=== PATIENT | male | born 1930 | race Caucasian/White ===

== ENCOUNTER → 2016-02-11 | Outpatient (CLI) | payer MEDICARE, OTHER ==
[2016-02-11 18:17] LABS: ABSOLUTE LYMPHOCYTES (AUTO) 2.1 10^3/uL (0.5-4.7); ABSOLUTE MONOCYTES (AUTO) 0.8 10^3/uL (0.1-1.4); BASOPHILS % (AUTO) 0.6 % (0-2); EOSINOPHILS % (AUTO) 0.6 % (0-6); HEMATOCRIT 38.6 % (37.9-51.0); HEMOGLOBIN 13.5 g/dL (13.5-17.0); HGB HCT DIFFERENCE 1.9; LYMPHOCYTES % (AUTO) 25.7 % (13-45); MEAN CORPUSCULAR HEMOGLOBIN 29.3 pg (27.0-33.4); MEAN CORPUSCULAR HGB CONC 34.9 g/dL (32.0-36.0); MEAN CORPUSCULAR VOLUME 84 fl (80-97); MONOCYTES % (AUTO) 10.5 % (3-13); RED BLOOD COUNT 4.59 10^6/uL (4.35-5.55); RED CELL DISTRIBUTION WIDTH 15.2 % (11.5-14.0); SEGMENTED NEUTROPHILS % (AUTO) 62.6 % (42-78)
[2016-02-11 18:36] LABS: ALANINE AMINOTRANSFERASE 40 U/L (21-72); ALBUMIN 3.8 g/dL (3.5-5.0); ALKALINE PHOSPHATASE 130 U/L (38-126); ANION GAP 14 (5-19); ASPARTATE AMINO TRANSFERASE 25 U/L (17-59); BILIRUBIN,TOTAL 0.7 mg/dL (0.2-1.3); BLOOD UREA NITROGEN 12 mg/dL (7-20); CALCIUM 9.2 mg/dL (8.4-10.2); CARBON DIOXIDE 23 mmol/L (22-30); CHLORIDE 100 mmol/L (98-107); CREATININE RESULT 0.91 mg/dL (0.52-1.25); GLUCOSE 93 mg/dL (75-110); POTASSIUM 3.8 mmol/L (3.6-5.0); SODIUM 137.4 mmol/L (137-145); TOTAL PROTEIN 6.7 g/dL (6.3-8.2)
== END ==
LOC: OD 17:16
PROVIDERS: ATTEND Nurse Practitioner
DX: I25.9 Chronic ischemic heart disease, unspecified (principal); I48.92 Unspecified atrial flutter; D64.9 Anemia, unspecified; I10 Essential (primary) hypertension; R06.02 Shortness of breath
CPT/HCPCS: 36415; 80053; 83880; 85025

== ENCOUNTER → 2016-02-11 | Outpatient (CLI) | payer MEDICARE, OTHER | LOC: RAD 16:39 | PROVIDERS: ATTEND Nurse Practitioner | DX: I25.9 Chronic ischemic heart disease, unspecified (principal); I48.92 Unspecified atrial flutter; D64.9 Anemia, unspecified; I10 Essential (primary) hypertension; R06.02 Shortness of breath | CPT/HCPCS: 71020 ==

== ENCOUNTER 2016-02-28 08:37 | Inpatient (IN) | payer MEDICARE, OTHER ==
[2016-02-28 09:18] LABS: ABSOLUTE LYMPHOCYTES (AUTO) 1.7 10^3/uL (0.5-4.7); ABSOLUTE MONOCYTES (AUTO) 0.6 10^3/uL (0.1-1.4); ABSOLUTE NEUT (AUTO) 4.3 10^3/uL (1.7-8.2); BASOPHILS % (AUTO) 0.5 % (0-2); EOSINOPHILS % (AUTO) 0.3 % (0-6); HEMATOCRIT 39.1 % (37.9-51.0); HGB HCT DIFFERENCE -0.1; LYMPHOCYTES % (AUTO) 25.8 % (13-45); MEAN CORPUSCULAR HGB CONC 33.2 g/dL (32.0-36.0); MEAN CORPUSCULAR VOLUME 87 fl (80-97); MONOCYTES % (AUTO) 8.5 % (3-13); RED BLOOD COUNT 4.48 10^6/uL (4.35-5.55); RED CELL DISTRIBUTION WIDTH 16.2 % (11.5-14.0); SEGMENTED NEUTROPHILS % (AUTO) 64.9 % (42-78); WHITE BLOOD COUNT 6.6 10^3/uL (4.0-10.5)
[2016-02-28 09:36] LABS: ALANINE AMINOTRANSFERASE 24 U/L (21-72); ALKALINE PHOSPHATASE 104 U/L (38-126); ANION GAP 12 (5-19); ASPARTATE AMINO TRANSFERASE 26 U/L (17-59); BILIRUBIN,TOTAL 0.8 mg/dL (0.2-1.3); BLOOD UREA NITROGEN 19 mg/dL (7-20); CALCIUM 9.3 mg/dL (8.4-10.2); CARBON DIOXIDE 26 mmol/L (22-30); CHLORIDE 101 mmol/L (98-107); CREATINE KINASE 41 U/L (55-170); CREATININE RESULT 1.03 mg/dL (0.52-1.25); GLUCOSE 108 mg/dL (75-110); POTASSIUM 3.8 mmol/L (3.6-5.0); SODIUM 139.1 mmol/L (137-145); TOTAL PROTEIN 6.7 g/dL (6.3-8.2)
[2016-02-28 09:51] LABS: APPEARANCE,URINE CLEAR; BILIRUBIN,URINE NEGATIVE (NEGATIVE); GLUCOSE, URINE NEGATIVE (NEGATIVE); KETONES,URINE NEGATIVE (NEGATIVE); LEUKOCYTE ESTERASE,URINE NEGATIVE (NEGATIVE); NITRITE,URINE NEGATIVE (NEGATIVE); PROTEIN,URINE NEGATIVE (NEGATIVE); URINE SPECIFIC GRAVITY 1.005; UROBILINOGEN,URINE NEGATIVE mg/dL (<2.0)
[2016-02-28 09:52] LABS: CREATINE KINASE MB 0.58 ng/mL (<4.55)
[2016-02-28 09:53] LABS: TROPONIN I 0.034 ng/mL
--- NOTE | 2016-02-28 10:18 | ER Document Report ---
ED Respiratory Problem - General Mode of Arrival: Medic Information source: Patient TRAVEL OUTSIDE OF THE [place] IN LAST 30 DAYS: No - HPI Patient complains to provider of: Short of breath Onset: Other - 2-3 weeks ago Associated symptoms: Other - see above <MANUEL CULVER - Last Filed: 02/28/16 10:21> <PASQUALE ALCANTAR - Last Filed: 02/28/16 12:47> - General Chief Complaint: Shortness Of Breath Stated Complaint: DIFFICULTY BREATHING Notes: 85 year old male with history of coronary artery disease, atrial fibrillation, hypertension, and hyperlipidemia presents to the ED complaining of shortness of breath that started 2-3 weeks ago. Patient explains that he was unsure if he was able to walk back into his home this morning after getting the paper secondary to his shortness of breath. Patient states that he has to actively think about breathing in order to catch his breath. The past 2 nights the patient has been having difficulty sleeping. Patient states that his shortness of breath has been getting progressively worse over the past 2-3 weeks. Patient is additionally complaining of gaining 10.5 lbs in the past 6 days. Patient was seen in the ED in May with cholecystitis and cholelithiasis but was transferred to [place] since he was already scheduled to receive an abdominal aorta aneurysm stent. Patient explains that he recently had an echocardiogram performed by Dr. Green and was started on Coreg 3 days ago. Patient is additionally on Coumadin, Lasix, and spironolactone. Patient's primary care provider is Dr. Medrano (MANUEL CULVER) - Related Data Allergies/Adverse Reactions: No Known Allergies Allergy (Verified 05/19/15 02:35) Past Medical History - General Information source: Patient - Social History Smoking Status: Never Smoker Family History: Reviewed & Not Pertinent - Past Medical History Cardiac Medical History: Reports: Hx Atrial Fibrillation, Hx Coronary Artery Disease, Hx Hypercholesterolemia, Hx Hypertension Past Surgical History: Reports: Hx Cardiac Surgery - AAA stent, Hx Cholecystectomy, Hx Coronary Artery Bypass Graft - Four-vessel bypass 2011 at [facility] in [place], [place], Hx Open Heart Surgery - Mitral valve repair during his 4 vessel bypass - Immunizations Hx Diphtheria, Pertussis, Tetanus Vaccination: Yes <MANUEL CULVER - Last Filed: 02/28/16 10:21> Review of Systems - Review of Systems Constitutional: See HPI, Weight gain - 10.5 pounds in the past 6 days. denies: Fever EENT: No symptoms reported Cardiovascular: No symptoms reported Respiratory: See HPI, Short of breath Gastrointestinal: No symptoms reported Genitourinary: No symptoms reported Male Genitourinary: No symptoms reported Musculoskeletal: No symptoms reported Skin: No symptoms reported Hematologic/Lymphatic: No symptoms reported Neurological/Psychological: See HPI, Other - difficulty sleeping -: Yes All other systems reviewed and negative <MANUEL CULVER - Last Filed: 02/28/16 10:21> Physical Exam - General General appearance: Alert In distress: None - HEENT Head: Normocephalic, Atraumatic Eyes: Normal Extraocular movements intact: Yes Pupils: PERRL - Respiratory Respiratory status: No respiratory distress Breath sounds: Other - crackles at the bilateral base - Cardiovascular Rhythm: Irregularly irregular Heart sounds: Normal auscultation - Abdominal Inspection: Normal Distension: No distension Tenderness: Nontender - Back Back: Normal - Extremities General upper extremity: Normal inspection, Normal ROM General lower extremity: Normal inspection, Normal ROM. No: Edema - Neurological Neuro grossly intact: Yes - Psychological Associated symptoms: Normal affect, Normal mood - Skin Skin Temperature: Warm Skin Moisture: Dry Skin Color: Normal <MANUEL CULVER - Last Filed: 02/28/16 10:21> <PASQUALE ALCANTAR - Last Filed: 02/28/16 12:47> - Vital signs Vitals: Pulse Ox 95 02/28/16 08:45 (MANUEL CULVER) (PASQUALE ALCANTAR) Course - Laboratory Result Diagrams: 02/28/16 09:05 02/28/16 09:05 <MANUEL CULVER - Last Filed: 02/28/16 10:21> - Laboratory Result Diagrams: 02/28/16 09:05 02/28/16 09:05 - Diagnostic Test Radiology reviewed: Reports reviewed - Congestive heart failure - EKG Interpretation by Oh EKG shows normal: [place], QRS Complexes, ST-T Waves. abnormal: Intervals - Prolonged QT interval Rate: Normal - 93 Rhythm: A.Fib, A.Flutter - Consults Dr. Varela Time consulted: 12:45 Consulted provider: will come to ER <PASQUALE ALCANTAR - Last Filed: 02/28/16 12:47> - Vital Signs Vital signs: Temp Pulse Resp BP Pulse Ox 97.8 F 24 H 132/101 H 98 02/28/16 10:36 02/28/16 12:07 02/28/16 12:07 02/28/16 12:07 (MANUEL CULVER) (PASQUALE ALCANTAR) - Laboratory Laboratory results interpreted by me: 02/28/16 02/28/16 02/28/16 09:05 09:05 09:05 Hgb 13.0 L RDW 16.2 H PT Creatine Kinase 41 L NT-Pro-B Natriuret Pep 5940 H Urine Blood 02/28/16 02/28/16 09:05 09:30 Hgb RDW PT 32.2 H Creatine Kinase NT-Pro-B Natriuret Pep Urine Blood SMALL H (MANUEL CULVER) (PASQUALE ALCANTAR) Discharge <MANUEL CULVER - Last Filed: 02/28/16 10:21> - Discharge Admitting Provider: Hospitalist <PASQUALE ALCANTAR - Last Filed: 02/28/16 12:47> - Discharge Clinical Impression: CHF (congestive heart failure) Qualifiers: Congestive heart failure type: unspecified congestive heart failure type Congestive heart failure chronicity: acute Qualified Code(s): I50.9 - Heart failure, unspecified Condition: Stable Disposition: ADMITTED INPATIENT Scribe Attestation: 02/28/16 12:44 I personally performed the services described in the documentation, reviewed and edited the documentation which was dictated to the scribe in my presence, and it accurately records my words and actions. (PASQUALE ALCANTAR) Scribe Documentation - Scribe Written by Scribe:: Tammi Rios, 02/28/2016 10:28 acting as scribe for :: Mitchell <MANUEL CULVER - Last Filed: 02/28/16 10:21>
[2016-02-28 10:22] LABS: PROTHROMBIN TIME 32.2 SEC (11.4-15.4)
--- NOTE | 2016-02-28 11:05 | EKG REPORT ---
SEVERITY:- ABNORMAL ECG - ATRIAL FLUTTER/FIBRILLATION, A-RATE 234 , THIS RHYTHM IS NEW COMPARED TO LAST EKG 05/19/15. PROLONGED QT INTERVAL : Confirmed by: Neville Nguyễn MD 28-Feb-2016 11:04:56
[2016-02-28] MEDS ORDERED: FUROSEMIDE INJ/PF 100 MG/10 ML SDV IV ONE (11:51)
[2016-02-28] MEDS ORDERED: ACETAMINOPHEN 325 MG TABLET PO PRN (13:33)
[2016-02-28] MEDS ORDERED: ONDANSETRON HCL INJ/PF 4 MG/2 ML SDV IV PRN (13:33)
[2016-02-28] MEDS ORDERED: ONDANSETRON 4 MG TAB.RAPDIS PO PRN (13:33)
[2016-02-28] MEDS ORDERED: NITROGLYCERIN 0.4 MG/TAB 25 TAB/BOTTLE SL PRN (13:41)
[2016-02-28] MEDS ORDERED: HYDRALAZINE HCL INJ/PF 20 MG/1 ML SDV IV PRN (14:10)
--- NOTE | 2016-02-28 14:10 | PDOC H&P ---
History of Present Illness Admission Date/PCP: 02/28/16 13:46 ZACHARIAH LANDRY Patient complains of: Shortness of breath and a 10 pound weight gain over the last week. 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 Patient reports that 3 days after being switched to Coreg he started gaining weight. The report he gained about 2 pounds a day until he is finally gained a total of 10 pounds. The patient also has had worsening shortness of breath along with orthopnea and PND. Patient denies having any chest pain associated with this. The patient does relate that his blood pressure has been fluctuating greatly and goes as high as 160/ 115 down to 110/70. This can occur within hours of each other. The patient does report having some mild lower extremity edema. He any change in his dietary habits. He has been taking his Lasix and Aldactone as prescribed. He denies any dysuria or abdominal pain. He does have some bloating and fluid retention. He presented to emergency because his breathing continued to worsen. He is found to be in congestive heart failure and was told by his front end drupal developer that his ejection fraction was 45% earlier this month. His blood pressure is very high and most likely has some diastolic component to his congestive heart failure also. Past Medical History Cardiac Medical History: Reports: Atrial Fibrillation, Coronary Artery Disease, Hyperlipidema, Hypertension Pulmonary Medical History: Reports: None Neurological Medical History: Reports: None Endocrine Medical History: Reports: Hypothyroidism Renal/ Medical History: Reports: None Malignancy Medical History: Reports: Other - Bladder cancer Musculoskeltal Medical History: Reports: None Skin Medical History: Reports: None Psychiatric Medical History: Reports: None Traumatic Medical History: Reports: Other - Right shoulder separation after being thrown from horse Hematology: Denies: Anemia, Sickle Cell Disease Infectious Medical History: Reports: None Past Surgical History Past Surgical History: Reports: Cholecystectomy, Coronary Artery Bypass Graft - Four-vessel bypass 03/10/2011 at [facility] in [place], [place], Other - Cardiac ablation for atrial fibrillation. Denies: Pacemaker Social History Information Source: Patient Lives with: Family Smoking Status: Never Smoker Frequency of Alcohol Use: Rare Hx Recreational Drug Use: No Drugs: None - Advance Directive Resuscitation Status: Full Code Family History Family History: Father at age 83 and had coronary artery disease. Mother at age 76 from lung cancer. Parental Family History Reviewed: Yes Children Family History Reviewed: No Sibling(s) Family History Reviewed.: No Medication/Allergy Home Medications: Aspirin [Aspirin 325 mg Tablet] 81 mg PO DAILY 09/27/12 Furosemide 40 mg PO DAILY 09/27/12 Multivitamin [Multi Vitamin Daily] 1 each PO DAILY 09/27/12 Nitroglycerin [Nitrostat 0.4 mg (1/150 Gr) Tabs 25/Bottle] 1 tab SL Q5MP PRN Warfarin Sodium [Coumadin 2.5 Mg Tablet] 2.5 mg PO DAILY 09/27/12 Cholecalciferol (Vitamin D3) [Vitamin D3 5000 unit Capsule] 5,000 unit PO ASDIR 10/18/12 Carvedilol 25 mg PO BID 02/28/16 Levothyroxine Sodium [Levo-T] 50 mcg PO QAM 02/28/16 Spironolactone 25 mg PO QAM 02/28/16 Allergies/Adverse Reactions: No Known Allergies Allergy (Verified 05/19/15 02:35) Review of Systems Constitutional: PRESENT: weight gain. ABSENT: chills, fever(s), headache(s) Eyes: ABSENT: visual disturbances Ears: ABSENT: hearing changes Cardiovascular: PRESENT: dyspnea on exertion, edema, orthropnea. ABSENT: chest pain, palpitations Respiratory: PRESENT: dyspnea. ABSENT: cough, hemoptysis, sputum Gastrointestinal: ABSENT: abdominal pain, constipation, diarrhea, hematemesis, hematochezia, nausea, vomiting Genitourinary: ABSENT: dysuria, hematuria Musculoskeletal: ABSENT: joint swelling Integumentary: ABSENT: rash, wounds Neurological: ABSENT: abnormal gait, abnormal speech, confusion, dizziness, focal weakness, syncope Psychiatric: ABSENT: anxiety, depression Endocrine: ABSENT: cold intolerance, heat intolerance, polydipsia, polyuria Hematologic/Lymphatic: ABSENT: easy bleeding, easy bruising Physical Exam Vital Signs: Temp Pulse Resp BP Pulse Ox 97.8 F 11 L 156/119 H 97 02/28/16 10:36 02/28/16 13:01 02/28/16 13:01 02/28/16 13:01 General appearance: PRESENT: no acute distress, well-developed, well-nourished Head exam: PRESENT: atraumatic, normocephalic Eye exam: PRESENT: conjunctiva pink, EOMI, PERRLA. ABSENT: scleral icterus Ear exam: PRESENT: normal external ear exam Mouth exam: PRESENT: moist, tongue midline Neck exam: ABSENT: carotid bruit, JVD, lymphadenopathy, thyromegaly Respiratory exam: PRESENT: rales - Bibasilar Cardiovascular exam: PRESENT: irregular rhythm. ABSENT: diastolic murmur, rubs , systolic murmur Vascular exam: PRESENT: normal capillary refill GI/Abdominal exam: PRESENT: normal bowel sounds, soft. ABSENT: distended, guarding, mass, organolmegaly, rebound, tenderness Extremities exam: PRESENT: pedal edema. ABSENT: calf tenderness, clubbing Neurological exam: PRESENT: alert, awake, oriented to person, oriented to place , oriented to time, oriented to situation, CN II-XII grossly intact. ABSENT: motor sensory deficit Psychiatric exam: PRESENT: appropriate affect Skin exam: PRESENT: dry, intact, warm. ABSENT: cyanosis, rash Results Impressions: Chest X-Ray 02/28/16 08:54 IMPRESSION: Congestive heart failure with interstitial pulmonary edema. Small left effusion. Assessment & Plan - Diagnosis (1) CHF (congestive heart failure) Qualifiers: Congestive heart failure type: unspecified congestive heart failure type Congestive heart failure chronicity: acute Qualified Code(s): I50.9 - Heart failure, unspecified Is this a current diagnosis for this admission?: YesPlan: The patient has elevated blood pressures which most likely is contributing to his congestive heart failure. The patient has a history of ejection fraction 45 % so he does have a component of systolic dysfunction and given the elevated blood pressures most likely also has diastolic dysfunction. The patient began having symptoms after his antihypertensives were switched from diltiazem to Coreg. I suspect that his blood pressure has gotten worse since making the change and that's what has caused his breathing to become worse. We will give IV Lasix and add on Norvasc to his therapy and will continue with the Coreg dose. We'll check serial cardiac enzymes to make certain this is not acute cardiac event but I suspect it is just blood pressure related. (2) Hypertension Is this a current diagnosis for this admission?: YesPlan: Patient's blood pressures fluctuate and he most likely has a component of autonomic dysfunction in addition to his hypertension. We'll continue with the Coreg and Aldactone. Will give IV Lasix and add on Norvasc. (3) Coronary artery disease Is this a current diagnosis for this admission?: YesPlan: Patient is chest pain-free. We'll check serial cardiac enzymes. Continue with aspirin 81 mg daily. (4) Atrial fibrillation Is this a current diagnosis for this admission?: YesPlan: Patient is rate controlled. We'll continue with the Coreg and Coumadin. (5) Bladder cancer Is this a current diagnosis for this admission?: YesPlan: Patient has a history of having bladder cancer 2 separate times removed with TURB (6) Hyperlipidemia Is this a current diagnosis for this admission?: Yes (7) Hypothyroidism Is this a current diagnosis for this admission?: YesPlan: Continue with Synthroid. (8) Abdominal aortic aneurysm Is this a current diagnosis for this admission?: YesPlan: Patient had an stent placed at [place]. - Time Time Spent: 50 to 70 Minutes - Inpatient Certification Medical Necessity: Need Close Monitoring Due to Risk of Patient Decompensation - Plan Summary Plan Summary: We'll make a full admission as I anticipate this will require greater than a 2 midnight hospital stay for diuresis.
[2016-02-28 16:00] LABS: CREATINE KINASE MB 0.41 ng/mL (<4.55); TROPONIN I 0.035 ng/mL
[2016-02-28] MEDS ORDERED: (PENDING PHARMACY ID) (Carvedilol [Carvedilol] 25 MG) PO SCH (18:00)
[2016-02-28 20:13] LABS: CREATINE KINASE MB 0.28 ng/mL (<4.55); TROPONIN I 0.033 ng/mL
[2016-02-28] MEDS: FUROSEMIDE INJ/PF 40 MG/4 ML SDV IV SCH (21:34)
[2016-02-28] MEDS: CARVEDILOL 12.5 MG TABLET PO SCH (21:35)
[2016-02-28] MEDS: FAMOTIDINE 20 MG TABLET PO SCH (21:36)
[2016-02-29 02:33] LABS: HEMATOCRIT 35.9 % (37.9-51.0); HEMOGLOBIN 11.9 g/dL (13.5-17.0); HGB HCT DIFFERENCE -0.2; MEAN CORPUSCULAR HGB CONC 33.2 g/dL (32.0-36.0); MEAN CORPUSCULAR VOLUME 87 fl (80-97); RED BLOOD COUNT 4.11 10^6/uL (4.35-5.55); RED CELL DISTRIBUTION WIDTH 15.9 % (11.5-14.0); WHITE BLOOD COUNT 6.9 10^3/uL (4.0-10.5)
[2016-02-29 02:41] LABS: PROTHROMBIN TIME 32.9 SEC (11.4-15.4)
[2016-02-29 02:51] LABS: ANION GAP 8 (5-19); BLOOD UREA NITROGEN 20 mg/dL (7-20); CALCIUM 8.6 mg/dL (8.4-10.2); CARBON DIOXIDE 30 mmol/L (22-30); CHLORIDE 102 mmol/L (98-107); CREATINE KINASE 29 U/L (55-170); CREATININE RESULT 1.13 mg/dL (0.52-1.25); GLUCOSE 86 mg/dL (75-110); POTASSIUM 3.6 mmol/L (3.6-5.0); SODIUM 140.3 mmol/L (137-145)
[2016-02-29 03:02] LABS: CREATINE KINASE MB 0.23 ng/mL (<4.55); TROPONIN I 0.039 ng/mL
[2016-02-29] MEDS: SPIRONOLACTONE 25 MG TABLET PO SCH (07:38)
[2016-02-29] MEDS: LEVOTHYROXINE SODIUM 0.05 MG TABLET PO SCH (07:38)
[2016-02-29] MEDS ORDERED: GUAIFENESIN/D-METHORPHAN (200-20 MG) SYRUP 10 ML PO PRN (08:32)
[2016-02-29] MEDS ORDERED: LACTULOSE SYRUP 20 GM/30 ML UDCUP PO PRN (08:33)
[2016-02-29] MEDS: FAMOTIDINE 20 MG TABLET PO SCH ×2 (09:31→21:30)
[2016-02-29] MEDS: AMLODIPINE BESYLATE 5 MG TABLET PO SCH (09:31)
[2016-02-29] MEDS: MULTIVITAMIN TABLET PO SCH (09:31)
[2016-02-29] MEDS: CARVEDILOL 12.5 MG TABLET PO SCH ×2 (09:32→21:31)
[2016-02-29] MEDS: FUROSEMIDE INJ/PF 40 MG/4 ML SDV IV SCH ×2 (09:32→21:30)
[2016-02-29] MEDS: WARFARIN SODIUM 2.5 MG TABLET PO SCH (09:41)
[2016-02-29] MEDS: ASPIRIN 81 MG TABLET, ENT COATED PO SCH (09:55)
[2016-02-29] MEDS ORDERED: ASPIRIN 325 MG TABLET PO SCH (10:00)
--- NOTE | 2016-02-29 10:05 | EKG REPORT ---
SEVERITY:- ABNORMAL ECG - A-FLUTTER W/ PREDOM 4:1 AV BLOCK, A-RATE 238 CONSIDER ANTEROSEPTAL INFARCT NONSPECIFIC T ABNORMALITIES, LATERAL LEADS : Confirmed by: Neville Nguyễn MD 29-Feb-2016 10:05:01
--- NOTE | 2016-02-29 11:53 | PDOC PROGRESS REPORT ---
Subjective Progress Note for:: 02/29/16 Subjective:: Patient reports improvement in his shortness of breath Physical Exam Vital Signs: Temp Pulse Resp BP Pulse Ox 97.9 F 69 20 125/85 99 02/29/16 07:47 02/29/16 07:47 02/29/16 07:47 02/29/16 07:47 02/29/16 07:47 Intake & Output 02/28/16 02/29/16 03/01/16 06:59 06:59 06:59 Intake Total 892 Balance 892 Weight 88.4 kg General appearance: PRESENT: no acute distress Eye exam: PRESENT: conjunctiva pink. ABSENT: scleral icterus Mouth exam: PRESENT: moist, tongue midline Neck exam: PRESENT: JVD Respiratory exam: PRESENT: rales - Right basilar rails. Cardiovascular exam: PRESENT: irregular rhythm. ABSENT: diastolic murmur, rubs , systolic murmur GI/Abdominal exam: PRESENT: normal bowel sounds, soft. ABSENT: distended, guarding, mass, organolmegaly, rebound, tenderness Extremities exam: PRESENT: +1 edema. ABSENT: calf tenderness, clubbing Neurological exam: PRESENT: alert, awake, oriented to person, oriented to place , oriented to time, oriented to situation Psychiatric exam: PRESENT: appropriate affect Skin exam: PRESENT: dry, intact, warm. ABSENT: cyanosis, rash Results Laboratory Results: 02/29/16 02:19 02/29/16 02:19 02/29/16 02/29/16 02:19 02:19 WBC 6.9 RBC 4.11 L Hgb 11.9 L Hct 35.9 L MCV 87 MCH 29.0 MCHC 33.2 RDW 15.9 H Plt Count 177 Sodium 140.3 Potassium 3.6 Chloride 102 Carbon Dioxide 30 Anion Gap 8 BUN 20 Creatinine 1.13 Est GFR ( Amer) > 60 Est GFR (Non-Af Amer) > 60 Glucose 86 Calcium 8.6 Magnesium 2.0 02/28/16 02/28/16 02/28/16 15:10 15:10 19:31 Creatine Kinase 32 L 32 L CK-MB (CK-2) 0.41 Troponin I 0.035 02/28/16 02/29/16 02/29/16 19:31 02:19 02:19 Creatine Kinase 29 L CK-MB (CK-2) 0.28 0.23 Troponin I 0.033 0.039 Impressions: Chest X-Ray 02/28/16 08:54 IMPRESSION: Congestive heart failure with interstitial pulmonary edema. Small left effusion. Assessment & Plan - Diagnosis (1) CHF (congestive heart failure) Qualifiers: Congestive heart failure type: unspecified congestive heart failure type Congestive heart failure chronicity: acute Qualified Code(s): I50.9 - Heart failure, unspecified Is this a current diagnosis for this admission?: YesPlan: The patient has elevated blood pressures which most likely is contributing to his congestive heart failure. The patient has a history of ejection fraction 45 % so he does have a component of systolic dysfunction and given the elevated blood pressures most likely also has diastolic dysfunction. The patient began having symptoms after his antihypertensives were switched from diltiazem to Coreg. I suspect that his blood pressure has gotten worse since making the change and that's what has caused his breathing to become worse. We will give IV Lasix and add on Norvasc to his therapy and will continue with the Coreg dose. We'll check serial cardiac enzymes to make certain this is not acute cardiac event but I suspect it is just blood pressure related. (2) Hypertension Is this a current diagnosis for this admission?: YesPlan: Patient's blood pressures fluctuate and he most likely has a component of autonomic dysfunction in addition to his hypertension. We'll continue with the Coreg and Aldactone. Will give IV Lasix and continue with Norvasc that was started yesterday. (3) Coronary artery disease Is this a current diagnosis for this admission?: YesPlan: Patient is chest pain-free. Cardiac enzymes were negative. Continue with aspirin 81 mg daily. (4) Atrial fibrillation Is this a current diagnosis for this admission?: YesPlan: Patient is rate controlled. We'll continue with the Coreg and Coumadin. (5) Bladder cancer Is this a current diagnosis for this admission?: YesPlan: Patient has a history of having bladder cancer 2 separate times removed with TURB (6) Hyperlipidemia Is this a current diagnosis for this admission?: Yes (7) Hypothyroidism Is this a current diagnosis for this admission?: YesPlan: Continue with Synthroid. (8) Abdominal aortic aneurysm Is this a current diagnosis for this admission?: YesPlan: Patient had an stent placed at [place]. - Time Time Spent with patient: 25-34 minutes - Inpatient Certification Medical Necessity: Need Close Monitoring Due to Risk of Patient Decompensation
[2016-03-01 05:55] LABS: PROTHROMBIN TIME 25.9 SEC (11.4-15.4)
[2016-03-01 06:07] LABS: ABSOLUTE BASOPHILS # (AUTO) 0.1 10^3/uL (0.0-0.2); ABSOLUTE EOSINOPHILS # (AUTO) 0.1 10^3/uL (0.0-0.6); ABSOLUTE LYMPHOCYTES (AUTO) 1.6 10^3/uL (0.5-4.7); ABSOLUTE MONOCYTES (AUTO) 0.7 10^3/uL (0.1-1.4); ABSOLUTE NEUT (AUTO) 4.5 10^3/uL (1.7-8.2); BASOPHILS % (AUTO) 1.4 % (0-2); EOSINOPHILS % (AUTO) 0.9 % (0-6); HEMATOCRIT 36.1 % (37.9-51.0); HEMOGLOBIN 12.3 g/dL (13.5-17.0); HGB HCT DIFFERENCE 0.8; LYMPHOCYTES % (AUTO) 23.3 % (13-45); MEAN CORPUSCULAR HEMOGLOBIN 29.2 pg (27.0-33.4); MEAN CORPUSCULAR HGB CONC 34.2 g/dL (32.0-36.0); MEAN CORPUSCULAR VOLUME 85 fl (80-97); MONOCYTES % (AUTO) 9.8 % (3-13); RED BLOOD COUNT 4.23 10^6/uL (4.35-5.55); SEGMENTED NEUTROPHILS % (AUTO) 64.6 % (42-78); WHITE BLOOD COUNT 6.9 10^3/uL (4.0-10.5)
[2016-03-01 06:14] LABS: ANION GAP 12 (5-19); BLOOD UREA NITROGEN 19 mg/dL (7-20); CALCIUM 8.6 mg/dL (8.4-10.2); CARBON DIOXIDE 26 mmol/L (22-30); CHLORIDE 101 mmol/L (98-107); CREATININE RESULT 1.07 mg/dL (0.52-1.25); GLUCOSE 92 mg/dL (75-110); POTASSIUM 3.5 mmol/L (3.6-5.0); SODIUM 138.9 mmol/L (137-145)
[2016-03-01] MEDS: FUROSEMIDE INJ/PF 40 MG/4 ML SDV IV SCH (10:08)
[2016-03-01] MEDS: LEVOTHYROXINE SODIUM 0.05 MG TABLET PO SCH (10:09)
[2016-03-01] MEDS: SPIRONOLACTONE 25 MG TABLET PO SCH (10:10)
[2016-03-01] MEDS: FAMOTIDINE 20 MG TABLET PO SCH (10:10)
[2016-03-01] MEDS: ASPIRIN 81 MG TABLET, ENT COATED PO SCH (10:10)
[2016-03-01] MEDS: AMLODIPINE BESYLATE 5 MG TABLET PO SCH (10:10)
[2016-03-01] MEDS: MULTIVITAMIN TABLET PO SCH (10:10)
[2016-03-01] MEDS: CARVEDILOL 12.5 MG TABLET PO SCH (10:11)
[2016-03-01] MEDS: WARFARIN SODIUM 2.5 MG TABLET PO SCH (10:14)
--- NOTE | 2016-03-01 12:43 | PDOC DISCHARGE SUMMARY ---
General - Admit/Disc Date/PCP Admission Date/Primary Care Provider: 02/28/16 13:33 ZACHARIAH LANDRY Discharge Date: 03/01/16 - Discharge Diagnosis (1) CHF (congestive heart failure) Is this a current diagnosis for this admission?: YesSummary: Most likely systolic and diastolic dysfunction. Acute on chronic. (2) Hypertension Is this a current diagnosis for this admission?: YesSummary: The patient was continued on Coreg and Norvasc was added because of his elevated blood pressures. It's felt that the high blood pressures may have been contributing to some of his congestive heart failure symptoms with diastolic dysfunction. (3) Coronary artery disease Is this a current diagnosis for this admission?: Yes (4) Atrial fibrillation Is this a current diagnosis for this admission?: Yes (5) Bladder cancer Is this a current diagnosis for this admission?: Yes (6) Hyperlipidemia Is this a current diagnosis for this admission?: Yes (7) Hypothyroidism Is this a current diagnosis for this admission?: Yes (8) Abdominal aortic aneurysm Is this a current diagnosis for this admission?: Yes - Additional Information Resuscitation Status: Full Code Discharge Diet: Cardiac Discharge Activity: Activity As Tolerated, Balance Activity w/Rest, Weigh Daily Home Medications: Aspirin [Aspirin 81 mg Chewable Tablet] 81 mg PO DAILY 02/28/16 Carvedilol [Coreg 25 mg Tablet] 1 tab PO Q12 02/28/16 Ergocalciferol (Vitamin D2) [Vitamin D2] 50,000 unit PO WE@1000 02/28/16 Furosemide [Lasix 40 mg Tablet] 40 mg PO DAILY 02/28/16 Levothyroxine Sodium [Synthroid 0.05 mg Tablet] 50 mcg PO DAILY 02/28/16 Multivitamin [Multivitamins] 1 each PO DAILY 02/28/16 Nitroglycerin [Nitrostat 0.4 mg (1/150 Gr) Tabs 25/Bottle] 1 tab SL Q5MP PRN Spironolactone [Aldactone 25 mg Tablet] 25 mg PO QAM 02/28/16 Thiamine HCl [Vitamin B-1] 100 mg PO DAILY 02/28/16 Warfarin Sodium [Coumadin 5 mg Tablet] 5 mg PO DAILY 02/28/16 Amlodipine Besylate [Norvasc 5 mg Tablet] 5 mg PO DAILY #30 tablet 01/23/17 History of Present Illness History of Present Illness: GALLITO FRANKLIN is a 85 year old male with history of coronary artery disease who was seen on Tuesday the of his net developer office and was switched from diltiazem to Coreg. Patient reports that 3 days after being switched to Coreg he started gaining weight. The report he gained about 2 pounds a day until he is finally gained a total of 10 pounds. The patient also has had worsening shortness of breath along with orthopnea and PND. Patient denies having any chest pain associated with this. The patient does relate that his blood pressure has been fluctuating greatly and goes as high as 160/ 115 down to 110/70. This can occur within hours of each other. The patient does report having some mild lower extremity edema. He any change in his dietary habits. He has been taking his Lasix and Aldactone as prescribed. He denies any dysuria or abdominal pain. He does have some bloating and fluid retention. He presented to emergency because his breathing continued to worsen. He is found to be in congestive heart failure and was told by his net developer that his ejection fraction was 45% earlier this month. His blood pressure is very high and most likely has some diastolic component to his congestive heart failure also. Hospital Course Hospital Course: 85-year-old gentleman with known depressed ejection fraction of 45% who presented with shortness of breath. The patient began having symptoms after he was taken off of diltiazem changed to Coreg. The patient blood pressures have been elevated and were as high as high as 190/110 while here in the emergency room. The patient was given IV Lasix along with starting Norvasc in addition to Coreg and Aldactone. Patient diuresed and his blood pressure became under good control. Patient has had complete resolution of his symptoms. It's felt that the patient probably developed congestive heart failure symptoms because of the very elevated blood pressures. Patient is back to his baseline status and is discharged home. His other medical problem's were stable during this hospitalization. Physical Exam Vital Signs: Temp Pulse Resp BP Pulse Ox 98.7 F 77 18 136/79 H 98 03/01/16 11:25 03/01/16 11:25 03/01/16 11:25 03/01/16 07:35 03/01/16 11:25 Intake & Output 02/29/16 03/01/16 03/02/16 06:59 06:59 06:59 Intake Total 892 1770 Balance 892 1770 Weight 88.4 kg 86.1 kg General appearance: PRESENT: no acute distress Eye exam: PRESENT: conjunctiva pink. ABSENT: scleral icterus Ear exam: PRESENT: normal external ear exam Mouth exam: PRESENT: moist, tongue midline Neck exam: ABSENT: JVD Respiratory exam: PRESENT: clear to auscultation marnie. ABSENT: rales, rhonchi, wheezes Vascular exam: PRESENT: normal capillary refill GI/Abdominal exam: PRESENT: normal bowel sounds, soft. ABSENT: distended, guarding, mass, organolmegaly, rebound, tenderness Extremities exam: ABSENT: calf tenderness, clubbing, pedal edema Neurological exam: PRESENT: alert, awake, oriented to person, oriented to place , oriented to time, oriented to situation Psychiatric exam: PRESENT: appropriate affect Skin exam: PRESENT: dry, intact, warm. ABSENT: cyanosis, rash Results Laboratory Results: 03/01/16 05:30 03/01/16 05:30 03/01/16 03/01/16 05:30 05:30 WBC 6.9 RBC 4.23 L Hgb 12.3 L Hct 36.1 L MCV 85 MCH 29.2 MCHC 34.2 RDW 16.0 H Plt Count 160 Seg Neutrophils % 64.6 Lymphocytes % 23.3 Monocytes % 9.8 Eosinophils % 0.9 Basophils % 1.4 Absolute Neutrophils 4.5 Absolute Lymphocytes 1.6 Absolute Monocytes 0.7 Absolute Eosinophils 0.1 Absolute Basophils 0.1 Sodium 138.9 Potassium 3.5 L Chloride 101 Carbon Dioxide 26 Anion Gap 12 BUN 19 Creatinine 1.07 Est GFR ( Amer) > 60 Est GFR (Non-Af Amer) > 60 Glucose 92 Calcium 8.6 02/28/16 02/28/16 02/28/16 15:10 15:10 19:31 Creatine Kinase 32 L 32 L CK-MB (CK-2) 0.41 Troponin I 0.035 02/28/16 02/29/16 02/29/16 19:31 02:19 02:19 Creatine Kinase 29 L CK-MB (CK-2) 0.28 0.23 Troponin I 0.033 0.039 Impressions: Chest X-Ray 02/28/16 08:54 IMPRESSION: Congestive heart failure with interstitial pulmonary edema. Small left effusion. Qualifiers PATEINT BEING DISCHARGED WITH ANY OF THE FOLLOWING DIAGNOSIS?: Heart Failure HF Pt with Afib discharged with Warfarin?: Yes HF Pt discharged on evidence-based Beta Felicity?: Yes Plan Discharge Plan: Patient is discharged home and he will follow-up with his net developer in 1-2 weeks. Time Spent: Greater than 30 Minutes
[2016-03-01 13:39] VITALS: BP 133/77
[2016-03-03] MEDS ORDERED: CHOLECALCIFEROL (D3) 1,000 UNIT TABLET PO SCH (10:00)
== END 2016-03-01 13:39 | disposition home or self-care (01) | DRG 293 ==
LOC: ER 08:37 → 3W 13:33 → UNDOADMIN 13:46 → EH 13:46 → 3W 16:38 → EH 16:38
PROVIDERS: ADMIT Internal Medicine; ATTEND Internal Medicine
DX: I11.0 Hypertensive heart disease with heart failure (principal); I50.43 Acute on chronic combined systolic (congestive) and diastolic (congestive) heart failure; I25.10 Atherosclerotic heart disease of native coronary artery without angina pectoris; I48.91 Unspecified atrial fibrillation; E78.5 Hyperlipidemia, unspecified; E03.9 Hypothyroidism, unspecified; I71.4 Abdominal aortic aneurysm, without rupture; E78.00 Pure hypercholesterolemia, unspecified; I45.81 Long QT syndrome; Z85.51 Personal history of malignant neoplasm of bladder; Z95.1 Presence of aortocoronary bypass graft; Z90.49 Acquired absence of other specified parts of digestive tract; Z79.82 Long term (current) use of aspirin; Z79.01 Long term (current) use of anticoagulants; Z79.899 Other long term (current) drug therapy; Z80.1 Family history of malignant neoplasm of trachea, bronchus and lung; Z82.49 Family history of ischemic heart disease and other diseases of the circulatory system
CPT/HCPCS: 36415; 71010; 80048; 80053; 81001; 82550; 82553; 83735; 83880; 84484; 85025; 85027; 85610; 93005; 93010; 96374; 99285; J1940; J3490

== ENCOUNTER 2017-01-29 23:09 | Emergency (ER) | payer MEDICARE, OTHER ==
[2017-01-30] MEDS ORDERED: NORMAL SALINE 1000 ML 1,000 ML IV PRN (01:18)
[2017-01-30] MEDS ORDERED: NORMAL SALINE 1000 ML 1,000 ML IV ONE (01:18)
--- NOTE | 2017-01-30 01:21 | ER Document Report ---
ED GI/ - General Chief Complaint: Penile Bleeding Stated Complaint: BLEEDING FROM URETHRA Time Seen by Provider: 01/30/17 01:15 Mode of Arrival: Ambulatory Information source: Patient Notes: 86 years old male who had a cystoscopy done last evening and with the cystoscope was removed there was a injury to the urethra possibly and started bleeding. According to the patient. Having difficulty and urinate tingling as well as bloody diarrhea. Having pain on urination 2. TRAVEL OUTSIDE OF THE [place] IN LAST 30 DAYS: No - Related Data Allergies/Adverse Reactions: No Known Allergies Allergy (Verified 01/29/17 23:27) Past Medical History - Social History Smoking Status: Never Smoker Family History: Reviewed & Not Pertinent - Past Medical History Cardiac Medical History: Reports: Hx Atrial Fibrillation, Hx Coronary Artery Disease, Hx Hypercholesterolemia, Hx Hypertension Endocrine Medical History: Reports: Hx Hypothyroidism Renal/ Medical History: Denies: Hx Peritoneal Dialysis Psychiatric Medical History: Denies: Hx Depression Past Surgical History: Reports: Hx Cardiac Surgery - AAA stent, Hx Cholecystectomy, Hx Coronary Artery Bypass Graft - Four-vessel bypass 2011 at [facility] in [place], [place], Hx Open Heart Surgery - Mitral valve repair during his 4 vessel bypass, Other - Cardiac ablation for atrial fibrillation.. Denies: Hx Pacemaker - Immunizations Hx Diphtheria, Pertussis, Tetanus Vaccination: Yes Review of Systems - Review of Systems Notes: REVIEW OF SYSTEMS: CONSTITUTIONAL : Denies fever, chills, or sweats. Denies recent illness. EENT: Denies eye, ear, throat, or mouth pain or symptoms. Denies nasal or sinus congestion or discharge. Denies throat, tongue, or mouth swelling or difficulty swallowing. CARDIOVASCULAR: Denies chest pain. Denies palpitations or racing or irregular heart beat. Denies ankle edema. RESPIRATORY: Denies cough, cold, or chest congestion. Denies shortness of breath, difficulty breathing, or wheezing. GASTROINTESTINAL: Denies abdominal pain or distention. Denies nausea, vomiting , or diarrhea. Denies blood in vomitus, stools, or per rectum. Denies black, tarry stools. Denies constipation. GENITOURINARY: Denies difficulty urinating, painful urination, burning, frequency, blood in urine, or discharge. MUSCULOSKELETAL: Denies back or neck pain or stiffness. Denies joint pain or swelling. SKIN: Denies rash, lesions or sores. HEMATOLOGIC : Denies easy bruising or bleeding. LYMPHATIC: Denies swollen, enlarged glands. NEUROLOGICAL: Denies confusion or altered mental status. Denies passing out or loss of consciousness. Denies dizziness or lightheadedness. Denies headache. Denies weakness or paralysis or loss of use of either side. Denies problems with gait or speech. Denies sensory loss, numbness, or tingling. Denies seizures. PSYCHIATRIC: Denies anxiety or stress. Denies depression, suicidal ideation, or homicidal ideation. ALL OTHER SYSTEMS REVIEWED AND NEGATIVE. Dictation was performed using [employer] recognition software PHYSICAL EXAMINATION: GENERAL: Well-appearing, well-nourished and in no acute distress. HEAD: Atraumatic, normocephalic. EYES: Pupils equal round and reactive to light, extraocular movements intact, sclera anicteric, conjunctiva are normal. ENT: Nares patent, oropharynx clear without exudates. Moist mucous membranes. NECK: Normal range of motion, supple without lymphadenopathy LUNGS: Breath sounds clear to auscultation bilaterally and equal. No wheezes rales or rhonchi. HEART: Regular rate and rhythm without murmurs ABDOMEN: Soft, nontender, nondistended abdomen. No guarding, no rebound. No masses appreciated. Musculoskeletal: Normal range of motion, no pitting or edema. No cyanosis. NEUROLOGICAL: Cranial nerves grossly intact. Normal speech, normal gait. Normal sensory, motor exams PSYCH: Normal mood, normal affect. SKIN: Warm, Dry, normal turgor, no rashes or lesions noted. Physical Exam - Vital signs Vitals: Temp Pulse Resp BP Pulse Ox 98.7 F 115 H 20 122/82 94 01/29/17 23:33 01/29/17 23:33 01/29/17 23:33 01/29/17 23:33 01/29/17 23:33 Course - Re-evaluation Re-evalutation: 01/30/17 03:46 Tried to contact the urologist Dr. Armenta in [place] without success. Residual volume was 200 cc, subsequently a Greene catheter was placed. Because he was unable to void fearing pain. - Vital Signs Vital signs: Temp Pulse Resp BP Pulse Ox 98.7 F 115 H 18 124/89 H 96 01/29/17 23:33 01/29/17 23:33 01/30/17 03:01 01/30/17 03:01 01/30/17 03:01 - Laboratory Result Diagrams: 01/30/17 01:41 01/30/17 01:41 Laboratory results interpreted by me: 01/30/17 01/30/17 01/30/17 00:56 01:41 01:41 WBC 18.5 H RDW 14.5 H Absolute Neutrophils 14.3 H BUN 27 H Creatinine 1.26 H Est GFR (Non-Af Amer) 54 L Glucose 112 H Urine Protein 100 H Urine Glucose (UA) 50 H Urine Blood LARGE H Ur Leukocyte Esterase MODERATE H Discharge - Discharge Clinical Impression: Cystitis Hematuria Qualifiers: Hematuria type: gross Qualified Code(s): R31.0 - Gross hematuria Urethral injury Qualifiers: Encounter type: initial encounter Qualified Code(s): S37.30XA - Unspecified injury of urethra, initial encounter Urethral injury, closed Qualifiers: Encounter type: initial encounter Qualified Code(s): S37.30XA - Unspecified injury of urethra, initial encounter Bladder cancer Qualifiers: Bladder location: unspecified site Qualified Code(s): C67.9 - Malignant neoplasm of bladder, unspecified Condition: Fair Disposition: HOME, SELF-CARE Instructions: Greene Catheter Care ([facility]), Urinary Tract Infection ([facility]) Prescriptions: Levofloxacin [Levaquin 750 mg Tablet] 750 mg PO DAILY #5 tablet
[2017-01-30 02:01] LABS: ABSOLUTE BASOPHILS # (AUTO) 0.1 10^3/uL (0.0-0.2); ABSOLUTE LYMPHOCYTES (AUTO) 2.7 10^3/uL (0.5-4.7); ABSOLUTE MONOCYTES (AUTO) 1.3 10^3/uL (0.1-1.4); ABSOLUTE NEUT (AUTO) 14.3 10^3/uL (1.7-8.2); BASOPHILS % (AUTO) 0.8 % (0-2); EOSINOPHILS % (AUTO) 0.1 % (0-6); HEMOGLOBIN 16.7 g/dL (13.5-17.0); HGB HCT DIFFERENCE 3.1; LYMPHOCYTES % (AUTO) 14.8 % (13-45); MEAN CORPUSCULAR HEMOGLOBIN 32.1 pg (27.0-33.4); MEAN CORPUSCULAR HGB CONC 35.6 g/dL (32.0-36.0); MEAN CORPUSCULAR VOLUME 90 fl (80-97); MONOCYTES % (AUTO) 6.8 % (3-13); RED BLOOD COUNT 5.21 10^6/uL (4.35-5.55); RED CELL DISTRIBUTION WIDTH 14.5 % (11.5-14.0); SEGMENTED NEUTROPHILS % (AUTO) 77.5 % (42-78); WHITE BLOOD COUNT 18.5 10^3/uL (4.0-10.5)
[2017-01-30 02:30] LABS: APPEARANCE,URINE CLOUDY; BILIRUBIN,URINE NEGATIVE (NEGATIVE); GLUCOSE, URINE 50 mg/dL (NEGATIVE); KETONES,URINE NEGATIVE (NEGATIVE); LEUKOCYTE ESTERASE,URINE MODERATE (NEGATIVE); NITRITE,URINE NEGATIVE (NEGATIVE); PROTEIN,URINE 100 mg/dL (NEGATIVE); URINE SPECIFIC GRAVITY 1.027; UROBILINOGEN,URINE NEGATIVE mg/dL (<2.0)
[2017-01-30 02:50] LABS: ALANINE AMINOTRANSFERASE 29 U/L (21-72); ALBUMIN 4.4 g/dL (3.5-5.0); ALKALINE PHOSPHATASE 124 U/L (38-126); ANION GAP 13 (5-19); ASPARTATE AMINO TRANSFERASE 28 U/L (17-59); BILIRUBIN,DIRECT 0.4 mg/dL (0.0-0.4); BILIRUBIN,TOTAL 1.3 mg/dL (0.2-1.3); BLOOD UREA NITROGEN 27 mg/dL (7-20); CARBON DIOXIDE 26 mmol/L (22-30); CHLORIDE 98 mmol/L (98-107); CREATININE RESULT 1.26 mg/dL (0.52-1.25); GLUCOSE 112 mg/dL (75-110); POTASSIUM 4.7 mmol/L (3.6-5.0); SODIUM 137.3 mmol/L (137-145); TOTAL PROTEIN 7.2 g/dL (6.3-8.2)
[2017-01-30] MEDS ORDERED: LIDOCAINE 2% URO-JET 5 ML KIT MM ONE (03:36)
[2017-01-30] MEDS ORDERED: LEVOFLOXACIN 750 MG/D5W RTU 750 MG/150 ML RTUPB IV SCH (04:00)
[2017-01-30 05:08] VITALS: BP 133/77
== END 2017-01-30 05:35 | disposition home or self-care (01) ==
LOC: ER 23:09
DX: S37.30XA Unspecified injury of urethra, initial encounter (principal); Y84.8 Other medical procedures as the cause of abnormal reaction of the patient, or of later complication, without mention of misadventure at the time of the procedure; C67.9 Malignant neoplasm of bladder, unspecified; N30.91 Cystitis, unspecified with hematuria; I25.10 Atherosclerotic heart disease of native coronary artery without angina pectoris; I10 Essential (primary) hypertension; Z95.5 Presence of coronary angioplasty implant and graft; Z95.1 Presence of aortocoronary bypass graft
CPT/HCPCS: 99284; 51702; 96365; 96366; 36415; 87040; 85025; 80053; 81001; J7030; J1956

== ENCOUNTER 2017-07-09 02:50 | Inpatient (IN) | payer MEDICARE, OTHER ==
--- NOTE | 2017-07-09 03:19 | ER Document Report ---
ED General - General Chief Complaint: Dizziness Stated Complaint: GENERAL WEAKNESS Time Seen by Provider: 07/09/17 02:59 Notes: Patient is an 86-year-old male presents with complaint of suddenly feeling very weak and unwell. He says he felt dizzy and lightheaded and was sweating and chilled. Said he felt very nauseous but did not vomit. He did not have any pain during this episode. Did not feel short of breath. Today called ambulance and symptoms eventually resolved. Now feels improved. Patient had normal temp in the ambulance. Patient does have history of coronary disease and had bypass in the past. Patient does mention that over the last couple days he has had a small pain in his left lower back. Denies any dysuria. He denies any cough or congestion however his just in April from pneumonia after being hospitalized and he was in the hospital visiting her because of this. He does have a history of a aortic aneurysm which is undergone repair in the past due to endothelial leak. He does have a history of atrial fibrillation and is on warfarin. TRAVEL OUTSIDE OF THE [place] IN LAST 30 DAYS: No - Related Data Allergies/Adverse Reactions: No Known Allergies Allergy (Verified 07/09/17 03:15) Past Medical History - Social History Smoking Status: Unknown if Ever Smoked Frequency of alcohol use: None Drug Abuse: None Family History: Reviewed & Not Pertinent - Past Medical History Cardiac Medical History: Reports: Hx Atrial Fibrillation, Hx Congestive Heart Failure, Hx Coronary Artery Disease, Hx Hypercholesterolemia, Hx Hypertension Endocrine Medical History: Reports: Hx Hypothyroidism Renal/ Medical History: Denies: Hx Peritoneal Dialysis Psychiatric Medical History: Denies: Hx Depression Past Surgical History: Reports: Hx Cardiac Surgery - AAA stent, Hx Cholecystectomy, Hx Coronary Artery Bypass Graft - Four-vessel bypass 2011 at [facility] in [place], [place], Hx Open Heart Surgery - Mitral valve repair during his 4 vessel bypass, Other - Cardiac ablation for atrial fibrillation.. Denies: Hx Pacemaker - Immunizations Hx Diphtheria, Pertussis, Tetanus Vaccination: Yes Review of Systems - Review of Systems Notes: My Normal Review Basic REVIEW OF SYSTEMS: CONSTITUTIONAL : Was diaphoretic and chilled and felt weak. EENT: Denies eye, ear, throat, or mouth pain or symptoms. Denies nasal or sinus congestion. CARDIOVASCULAR: Denies chest pain. RESPIRATORY: Denies cough, cold, or chest congestion. Denies shortness of breath, difficulty breathing, or wheezing. GASTROINTESTINAL: Denies abdominal pain. Denies nausea, vomiting, or diarrhea. Denies constipation. Last BM: GENITOURINARY: Denies difficulty urinating, painful urination, burning, frequency, or blood in urine. MUSCULOSKELETAL: Mild pain over left lower back. SKIN: Denies rash or skin lesions. HEMATOLOGIC : Denies easy bruising or bleeding. LYMPHATIC: Denies swollen, enlarged glands. NEUROLOGICAL: Denies altered mental status or loss of consciousness. Denies headache. Denies weakness or paralysis or loss of use of either side. Denies problems with gait or speech. Denies sensory or motor loss. ALL OTHER SYSTEMS REVIEWED AND NEGATIVE. Physical Exam - Vital signs Vitals: BP 110/70 07/09/17 02:56 - Notes Notes: General Appearance: Well nourished, alert, cooperative, no acute distress, no obvious discomfort. Vitals: reviewed, See vital signs table. Head: no swelling or tenderness to the head Eyes: PERRL, EOMI, Conjuctiva clear Mouth: No decreasd moisture Throat: No tonsillar inflammation, No airway obstruction, No lymphadenopathy Lungs: No wheezing, No rales, No rhonci, No accessory muscle use, good air exchange bilaterally. Heart: Normal rate, Irregular rythm, No murmur, no rub Abdomen: Normal BS, soft, No rigidity, No abdominal tenderness, No guarding, no rebound, no abdominal masses, no organomegaly Extremities: strength 5/5 in all extremities, good pulses in all extremities, no swelling or tenderness in the extremities, no edema. Skin: warm, dry, appropriate color, no rash Neuro: speech clear, oriented x 3, normal affect, responds appropriately to questions. Course - Re-evaluation Re-evalutation: 07/09/17 05:20 Patient feeling much improved after receiving some IV fluids from the ambulance. She does still feel some weakness but not as bad as he did earlier. I suspect that may be the hot sweats followed by cold chills could have been a fever that was spiking earlier. Does have pneumonia on chest x-ray. His troponin is indeterminate at this time. He never had any chest pain. He never had abdominal pain he has equal peripheral pulses therefore I am not too concerned about his history of aortic aneurysm as a cause of his symptoms tonight. Number suspect this most likely will be infectious from the pneumonia. He has not recently been hospitalized. Of started on Levaquin. Blood cultures have been ordered. Blood pressure has been low 90s-110s systolically. Heart rate is been in the 90s. Oxygen saturation is been anywhere from 90-94% on room air. Based on his age and borderline blood pressure I think is appropriate to admit him for at least observation to make sure he continues to improve and do well for next 24 hours. I did speak with the hospitalist, Dr Cantu, who agrees to admit the patient. Dictation of this chart was performed using voice recognition software; therefore, there may be some unintended grammatical errors. - Vital Signs Vital signs: Temp Pulse Resp BP Pulse Ox 98.7 F 94 22 H 125/78 94 07/09/17 03:12 07/09/17 03:13 07/09/17 03:01 07/09/17 03:01 07/09/17 03:01 - Laboratory Result Diagrams: 07/09/17 02:35 07/09/17 02:35 Laboratory results interpreted by me: 07/09/17 07/09/17 07/09/17 02:35 02:35 02:35 WBC 13.6 H RDW 14.1 H Seg Neutrophils % 83.1 H Monocytes % 2.2 L Absolute Neutrophils 11.3 H PT 24.3 H Sodium 136.8 L BUN 24 H Glucose 112 H Urine Urobilinogen 07/09/17 04:25 WBC RDW Seg Neutrophils % Monocytes % Absolute Neutrophils PT Sodium BUN Glucose Urine Urobilinogen 2.0 H - EKG Interpretation by Me Additional EKG results interpreted by me: 07/09/17 03:34 EKG is reviewed and interpreted by me. EKG shows A. fib with rate of [address] bpm. Occasional [address]VC. No ST segment elevation or depression. No ischemic T-wave inversions. QRS duration QTc intervals are within normal range. Old EKG for comparison is from February 29 2016. Discharge - Discharge Referrals: ZACHARIAH LANDRY, [employer] [Primary Care Provider] - Follow up as needed
[2017-07-09 03:23] LABS: ABSOLUTE LYMPHOCYTES (AUTO) 1.9 10^3/uL (0.5-4.7); ABSOLUTE MONOCYTES (AUTO) 0.3 10^3/uL (0.1-1.4); ABSOLUTE NEUT (AUTO) 11.3 10^3/uL (1.7-8.2); BASOPHILS % (AUTO) 0.3 % (0-2); EOSINOPHILS % (AUTO) 0.1 % (0-6); HEMATOCRIT 46.8 % (37.9-51.0); HEMOGLOBIN 16.2 g/dL (13.5-17.0); LYMPHOCYTES % (AUTO) 14.3 % (13-45); MEAN CORPUSCULAR HEMOGLOBIN 31.5 pg (27.0-33.4); MEAN CORPUSCULAR HGB CONC 34.7 g/dL (32.0-36.0); MEAN CORPUSCULAR VOLUME 91 fl (80-97); MONOCYTES % (AUTO) 2.2 % (3-13); PLATELET COUNT 175 10^3/uL (150-450); RED BLOOD COUNT 5.15 10^6/uL (4.35-5.55); RED CELL DISTRIBUTION WIDTH 14.1 % (11.5-14.0); SEGMENTED NEUTROPHILS % (AUTO) 83.1 % (42-78); TOTAL CELLS COUNTED % (AUTO) 100 %; WHITE BLOOD COUNT 13.6 10^3/uL (4.0-10.5)
[2017-07-09 03:29] LABS: INTERNATIONAL RATION (INR) 2.07; PROTHROMBIN TIME 24.3 SEC (11.4-15.4)
--- NOTE | 2017-07-09 04:07 | RADIOLOGY REPORT (SQ) ---
EXAM DESCRIPTION: Single view of the chest CLINICAL HISTORY: diaphoresis COMPARISON: 02/28/2016 FINDINGS: Single frontal view of the chest. Prior median sternotomy. Valve repair. Atherosclerotic calcification and tortuosity of thoracic aorta. Heart is not definitely enlarged. Low lung volumes. Retrocardiac airspace opacity. No acute osseous abnormality. Upper abdominal soft tissues are unremarkable. IMPRESSION: 1. Retrocardiac airspace opacity concerning for pneumonia. Continued radiographic follow-up to resolution recommended
[2017-07-09 04:08] LABS: ALANINE AMINOTRANSFERASE 22 U/L (21-72); ALBUMIN 4.2 g/dL (3.5-5.0); ALKALINE PHOSPHATASE 86 U/L (38-126); ANION GAP 13 (5-19); ASPARTATE AMINO TRANSFERASE 30 U/L (17-59); BILIRUBIN,DIRECT 0.4 mg/dL (0.0-0.4); BLOOD UREA NITROGEN 24 mg/dL (7-20); CALCIUM 9.8 mg/dL (8.4-10.2); CARBON DIOXIDE 24 mmol/L (22-30); CHLORIDE 100 mmol/L (98-107); GLUCOSE 112 mg/dL (75-110); POTASSIUM 4.4 mmol/L (3.6-5.0); SODIUM 136.8 mmol/L (137-145)
[2017-07-09 04:43] LABS: APPEARANCE,URINE CLEAR; BILIRUBIN,URINE NEGATIVE (NEGATIVE); COLOR,URINE YELLOW; GLUCOSE, URINE NEGATIVE (NEGATIVE); KETONES,URINE NEGATIVE (NEGATIVE); LEUKOCYTE ESTERASE,URINE NEGATIVE (NEGATIVE); NITRITE,URINE NEGATIVE (NEGATIVE); PROTEIN,URINE NEGATIVE (NEGATIVE); URINE SPECIFIC GRAVITY 1.015
[2017-07-09] MEDS ORDERED: LEVOFLOXACIN 750 MG/D5W RTU 750 MG/150 ML RTUPB IV ONE (05:04)
[2017-07-09] MEDS ORDERED: NORMAL SALINE 500 ML IV ONE (05:05)
[2017-07-09] MEDS ORDERED: ACETAMINOPHEN 325 MG TABLET PO PRN (05:33)
[2017-07-09] MEDS ORDERED: PROMETHAZINE HCL 25 MG TABLET PO PRN (05:33)
--- NOTE | 2017-07-09 05:53 | PDOC H&P ---
History of Present Illness Admission Date/PCP: ZACHARIAH LANDRY NP History of Present Illness: GALLITO FRANKLIN is a very pleasant 86 year old male patient with past medical history of A. fib, coronary artery disease status post quadruple coronary artery bypass graft, AAA status post repair, hypothyroidism, congestive heart failure, hypertension, and hyperlipidemia, presented this with 1 day history of shaking chills and fever. The above-mentioned complaints happens suddenly and he felt very cold and chilly so he needs to use his electric blanket. By the time he was brought by EMS to ER his symptoms has resolved. His initial blood work is unremarkable but his chest x-ray reported as retrocardiac airspace opacity concerning for pneumonia. Since patient is also running lower blood pressure patient is going to be admitted for pneumonia and he will be treated accordingly. He has nausea but no vomiting. No diarrhea or change in his bowel habits, no urinary complaints. He has dizziness but denies headache or blurring of vision. Past Medical History Cardiac Medical History: Reports: Atrial Fibrillation, Congestive Heart Failure , Coronary Artery Disease, Hyperlipidema, Hypertension Endocrine Medical History: Reports: Hypothyroidism Psychiatric Medical History: Denies: Depression Hematology: Denies: Anemia, Sickle Cell Disease Past Surgical History Past Surgical History: Reports: Cholecystectomy, Coronary Artery Bypass Graft - Four-vessel bypass 03/10/2011 at [facility] in [place], [place], Orthopedic Surgery - right shoulder, Other - Cardiac ablation for atrial fibrillation. Denies: Pacemaker Social History Smoking Status: Never Smoker Frequency of Alcohol Use: Occasional Hx Recreational Drug Use: No Drugs: None Hx Prescription Drug Abuse: No - Advance Directive Resuscitation Status: Full Code Family History Family History: Reviewed & Not Pertinent, Hyperlipidemia, Hypertension Parental Family History Reviewed: Yes Children Family History Reviewed: Yes Sibling(s) Family History Reviewed.: Yes Medication/Allergy Home Medications: Aspirin [Aspirin 81 mg Chewable Tablet] 81 mg PO DAILY 02/28/16 Carvedilol [Coreg 25 mg Tablet] 1 tab PO Q12 02/28/16 Ergocalciferol (Vitamin D2) [Vitamin D2] 50,000 unit PO WE@1000 02/28/16 Furosemide [Lasix 40 mg Tablet] 40 mg PO DAILY 02/28/16 Levothyroxine Sodium [Synthroid 0.05 mg Tablet] 50 mcg PO DAILY 01/21/17 Multivitamin [Multivitamins] 1 each PO DAILY 02/28/16 Nitroglycerin [Nitrostat 0.4 mg (1/150 Gr) Tabs 25/Bottle] 1 tab SL Q5MP PRN Spironolactone [Aldactone 25 mg Tablet] 25 mg PO QAM 02/28/16 Thiamine HCl [Vitamin B-1] 100 mg PO DAILY 02/28/16 Warfarin Sodium [Coumadin 5 mg Tablet] 5 mg PO DAILY 02/28/16 Amlodipine Besylate [Norvasc 5 mg Tablet] 5 mg PO DAILY #30 tablet 03/01/16 Levofloxacin [Levaquin 750 mg Tablet] 750 mg PO DAILY #5 tablet 01/30/17 Allergies/Adverse Reactions: No Known Allergies Allergy (Verified 07/09/17 03:15) Review of Systems Constitutional: PRESENT: as per HPI Eyes: PRESENT: as per HPI Breasts: PRESENT: as per HPI Cardiovascular: PRESENT: as per HPI Respiratory: PRESENT: as per HPI Neurological: ABSENT: abnormal gait, abnormal speech, confusion, dizziness, focal weakness, syncope Psychiatric: ABSENT: anxiety, depression, homidical ideation, suicidal ideation Physical Exam Vital Signs: Temp Pulse Resp BP Pulse Ox 98.7 F 94 22 H 125/78 94 07/09/17 03:12 07/09/17 03:13 07/09/17 03:01 07/09/17 03:01 07/09/17 03:01 Intake & Output 07/07/17 07/08/17 07/09/17 06:59 06:59 06:59 Weight 92.533 kg General appearance: PRESENT: mild distress Head exam: PRESENT: atraumatic, normocephalic Eye exam: PRESENT: conjunctiva pink, EOMI, PERRLA. ABSENT: scleral icterus Neck exam: ABSENT: carotid bruit, JVD, lymphadenopathy, thyromegaly Respiratory exam: PRESENT: rhonchi Cardiovascular exam: PRESENT: irregular rhythm. ABSENT: diastolic murmur, rubs , systolic murmur GI/Abdominal exam: PRESENT: normal bowel sounds, soft. ABSENT: distended, guarding, mass, organolmegaly, rebound, tenderness Neurological exam: PRESENT: alert, awake, oriented to time, oriented to situation Psychiatric exam: PRESENT: normal mood Results Laboratory Results: 07/09/17 02:35 07/09/17 02:35 07/09/17 07/09/17 07/09/17 02:35 02:35 04:25 WBC 13.6 H RBC 5.15 Hgb 16.2 Hct 46.8 MCV 91 MCH 31.5 MCHC 34.7 RDW 14.1 H Plt Count 175 Seg Neutrophils % 83.1 H Lymphocytes % 14.3 Monocytes % 2.2 L Eosinophils % 0.1 Basophils % 0.3 Absolute Neutrophils 11.3 H Absolute Lymphocytes 1.9 Absolute Monocytes 0.3 Absolute Eosinophils 0.0 Absolute Basophils 0.0 Sodium 136.8 L Potassium 4.4 Chloride 100 Carbon Dioxide 24 Anion Gap 13 BUN 24 H Creatinine 1.00 Est GFR ( Amer) > 60 Est GFR (Non-Af Amer) > 60 Glucose 112 H Calcium 9.8 Total Bilirubin 1.0 AST 30 ALT 22 Alkaline Phosphatase 86 Total Protein 7.0 Albumin 4.2 Urine Color YELLOW Urine Appearance CLEAR Urine pH 6.0 Ur Specific Reading 1.015 Urine Protein NEGATIVE Urine Glucose (UA) NEGATIVE Urine Ketones NEGATIVE Urine Blood NEGATIVE Urine Nitrite NEGATIVE Ur Leukocyte Esterase NEGATIVE Urine WBC (Auto) 1 Urine RBC (Auto) 2 07/09/17 02:35 Troponin I 0.047 Impressions: Chest X-Ray 07/09/17 03:13 IMPRESSION: 1. Retrocardiac airspace opacity concerning for pneumonia. Continued radiographic follow-up to resolution recommended Assessment & Plan - Diagnosis (1) Community acquired pneumonia Qualifiers: Laterality: left Is this a current diagnosis for this admission?: Yes Plan: Patient has been started on Levaquin. (2) Atrial fibrillation Qualifiers: Atrial fibrillation type: chronic Qualified Code(s): I48.2 - Chronic atrial fibrillation Is this a current diagnosis for this admission?: Yes Plan: Status post ablation. Rate controlled. (3) Coronary artery disease Qualifiers: Coronary Disease-Associated Artery/Lesion type: [place] artery Is this a current diagnosis for this admission?: Yes Plan: Status post quadruple coronary artery bypass graft. Patient does not have angina. We will continue his home medications. (4) Hyperlipidemia Qualifiers: Hyperlipidemia type: unspecified Qualified Code(s): E78.5 - Hyperlipidemia , unspecified Is this a current diagnosis for this admission?: Yes Plan: Continue his home medications. (5) Hypertension Qualifiers: Hypertension type: essential hypertension Qualified Code(s): I10 - Essential (primary) hypertension Is this a current diagnosis for this admission?: Yes Plan: Patient is running hypotension so we will hold his antihypertensive medications. (6) Hypothyroidism Qualifiers: Hypothyroidism type: acquired Qualified Code(s): E03.9 - Hypothyroidism, unspecified Is this a current diagnosis for this admission?: Yes Plan: Continue Synthroid. - Time Time Spent: 30 to 50 Minutes - Inpatient Certification Medical Necessity: Need Close Monitoring Due to Risk of Patient Decompensation, Need for IV Antibiotics
[2017-07-09] MEDS: LANSOPRAZOLE 30 MG TAB.RAP.DR PO SCH (06:17)
[2017-07-09] MEDS ORDERED: LEVOFLOXACIN 750 MG/D5W RTU 750 MG/150 ML RTUPB IV SCH (10:00)
[2017-07-09] MEDS: NORMAL SALINE 1000 ML 1,000 ML IV PRN ×2 (10:05→23:28)
[2017-07-09] MEDS: ENOXAPARIN SODIUM INJ 40 MG/0.4 ML DISP.SYRIN SUBCUT SCH (10:05)
[2017-07-09] MEDS ORDERED: (PENDING PHARMACY ID) (Multivitamin [Multivitamins] 1 CAP) PO SCH (14:15)
--- NOTE | 2017-07-09 14:18 | Progress Note ---
Provider Note Provider Note: Agree with furrier apprentice's plan of care. Patient seen this morning on rounds, he is resting comfortably in bed on room air. Lungs are clear to auscultation. The patient c/o very mild L lower back pain with movement. Plan to continue IV levaquin, resume all home medications, and initiate gentle IV hydration. Tylenol for pain control. Patient is currently on Coumadin, plan to check INR in AM. Agree that the patient needs to be closely monitored given his co-morbidities and the potential for decompensation.
[2017-07-09] MEDS ORDERED: MULTIVITAMIN TABLET PO ONE (15:30)
[2017-07-09] MEDS ORDERED: ASPIRIN 81 MG TABLET, CHEWABLE PO ONE (15:30)
[2017-07-09] MEDS ORDERED: SPIRONOLACTONE 25 MG TABLET PO ONE (15:30)
[2017-07-09] MEDS ORDERED: CARVEDILOL 12.5 MG TABLET PO ONE (15:30)
[2017-07-09] MEDS ORDERED: THIAMINE HCL 100 MG TABLET PO ONE (15:30)
[2017-07-09] MEDS ORDERED: LEVOTHYROXINE SODIUM 0.075 MG TABLET PO ONE (15:30)
--- NOTE | 2017-07-09 17:32 | EKG REPORT ---
SEVERITY:- ABNORMAL ECG - ATRIAL FLUTTER, A-RATE 238 MULTIPLE VENTRICULAR PREMATURE COMPLEXES : Confirmed by: Jessica Steele 09-Jul-2017 17:32:05
[2017-07-09] MEDS ORDERED: WARFARIN SODIUM 2.5 MG TABLET PO SCH (18:00)
[2017-07-09] MEDS: CARVEDILOL 12.5 MG TABLET PO SCH (21:11)
[2017-07-10] MEDS: LANSOPRAZOLE 30 MG TAB.RAP.DR PO SCH (05:21)
[2017-07-10] MEDS ORDERED: LEVOTHYROXINE SODIUM 0.075 MG TABLET PO SCH (06:00)
[2017-07-10 06:31] LABS: HEMATOCRIT 39.3 % (37.9-51.0); MEAN CORPUSCULAR HEMOGLOBIN 32.5 pg (27.0-33.4); MEAN CORPUSCULAR HGB CONC 35.6 g/dL (32.0-36.0); MEAN CORPUSCULAR VOLUME 91 fl (80-97); PLATELET COUNT 114 10^3/uL (150-450); RED CELL DISTRIBUTION WIDTH 14.5 % (11.5-14.0); WHITE BLOOD COUNT 9.5 10^3/uL (4.0-10.5)
[2017-07-10 06:32] LABS: INTERNATIONAL RATION (INR) 1.76; PROTHROMBIN TIME 21.4 SEC (11.4-15.4)
[2017-07-10 06:47] LABS: ANION GAP 7 (5-19); BLOOD UREA NITROGEN 20 mg/dL (7-20); CALCIUM 8.8 mg/dL (8.4-10.2); CARBON DIOXIDE 26 mmol/L (22-30); CHLORIDE 105 mmol/L (98-107); GLUCOSE 91 mg/dL (75-110); PHOSPHORUS 2.6 mg/dL (2.5-4.5); POTASSIUM 4.2 mmol/L (3.6-5.0); SODIUM 138.2 mmol/L (137-145)
[2017-07-10] MEDS: CARVEDILOL 12.5 MG TABLET PO SCH (09:18)
[2017-07-10] MEDS: ENOXAPARIN SODIUM INJ 40 MG/0.4 ML DISP.SYRIN SUBCUT SCH (09:20)
[2017-07-10] MEDS ORDERED: WARFARIN SODIUM PO SCH (10:00)
[2017-07-10] MEDS ORDERED: SPIRONOLACTONE 25 MG TABLET PO SCH (10:00)
[2017-07-10] MEDS ORDERED: LEVOFLOXACIN 750 MG/D5W RTU 750 MG/150 ML RTUPB IV SCH (10:00)
[2017-07-10] MEDS ORDERED: THIAMINE HCL 100 MG TABLET PO SCH (10:00)
[2017-07-10] MEDS ORDERED: ASPIRIN 81 MG TABLET, CHEWABLE PO SCH (10:00)
[2017-07-10] MEDS ORDERED: MULTIVITAMIN TABLET PO SCH (10:00)
[2017-07-10 16:11] VITALS: BP 97/68
[2017-07-11] MEDS ORDERED: WARFARIN SODIUM 2.5 MG TABLET PO SCH (22:00)
--- NOTE | 2017-07-13 09:54 | PDOC DISCHARGE SUMMARY ---
General - Admit/Disc Date/PCP Admission Date/Primary Care Provider: 07/09/17 05:46 ZACHARIAH LANDRY NP Discharge Date: 07/10/17 - Discharge Diagnosis (1) Community acquired pneumonia Is this a current diagnosis for this admission?: Yes (2) Abdominal aortic aneurysm Is this a current diagnosis for this admission?: Yes (3) Coronary artery disease Is this a current diagnosis for this admission?: Yes (4) Hyperlipidemia Is this a current diagnosis for this admission?: Yes (5) Hypertension Is this a current diagnosis for this admission?: Yes - Additional Information Resuscitation Status: Full Code Discharge Diet: As Tolerated Discharge Activity: Activity As Tolerated Prescriptions: Cefuroxime Axetil [Ceftin 500 mg Tablet] 1 tab PO BID #18 tablet Doxycycline Monohydrate 100 mg PO BID #18 tablet Home Medications: Aspirin [Aspirin 81 mg Chewable Tablet] 81 mg PO DAILY 07/09/17 Carvedilol [Coreg 25 mg Tablet] 25 mg PO Q12 07/09/17 Ergocalciferol (Vitamin D2) [Drisdol 50,000 unit (1.25MG) Capsule] 50,000 unit PO WE@1000 07/09/17 Furosemide [Lasix 40 mg Tablet] 40 mg PO QAM 07/09/17 Levothyroxine Sodium [Synthroid 0.075 mg Tablet] 0.075 mg PO DAILY 07/09/17 Multivitamin [Multivitamins] 1 cap PO DAILY 07/09/17 Nitroglycerin [Nitrostat 0.4 mg (1/150 Gr) Tabs 25/Bottle] 1 tab SL Q5MP PRN 03/27 Spironolactone [Aldactone 25 mg Tablet] 25 mg PO DAILY 07/09/17 Thiamine HCl [Thiamine 100 mg Tablet] 100 mg PO DAILY 07/09/17 Warfarin Sodium [Coumadin 2.5 mg Tablet] 2.5 mg PO MOFR@1000 07/09/17 Warfarin Sodium [Coumadin 2.5 mg Tablet] 3.75 mg PO SUTUWETHSA@1000 07/09/17 Cefuroxime Axetil [Ceftin 500 mg Tablet] 1 tab PO BID #18 tablet 07/10/17 Doxycycline Monohydrate 100 mg PO BID #18 tablet 07/10/17 History of Present Illness History of Present Illness: GALLITO FRANKLIN is a very pleasant 86 year old male patient with past medical history of A. fib, coronary artery disease status post quadruple coronary artery bypass graft, AAA status post repair, hypothyroidism, congestive heart failure, hypertension, and hyperlipidemia, presented this with 1 day history of shaking chills and fever. The above-mentioned complaints happens suddenly and he felt very cold and chilly so he needs to use his electric blanket. By the time he was brought by EMS to ER his symptoms has resolved. His initial blood work is unremarkable but his chest x-ray reported as retrocardiac airspace opacity concerning for pneumonia. Since patient is also running lower blood pressure patient is going to be admitted for pneumonia and he will be treated accordingly. He has nausea but no vomiting. No diarrhea or change in his bowel habits, no urinary complaints. He has dizziness but denies headache or blurring of vision. Hospital Course Hospital Course: 86 y.o. male with a significant cardiac history presented to the emergency department with shortness of breath. He was admitted to [facility] hospitalist service for LLL PNA discovered on CXR. Mild leukocytosis (WBC 13), afebrile, and non- toxic appearing. IV levaquin was started for empiric treatment of community acquired PNA. Within 24hrs the patient stated he was feeling much better. His vital signs remained WNL, he remained afebrile. The patient was able to ambulate around the unit without becoming SOB, hypoxic, or tachycardic. No changes were made to his home medication regimen. After approximately 36 hours at [facility], the patient was discharged home. PO levaquin interacts with coumadin, which the patient has been taking for years, so he was sent home on doxycycline and ceftin to complete his antibiotic treatment. The patient was encouraged to follow up with his primary care doctor within 1 week. The discharge instructions were explained thoroughly, the patient stated understanding. Physical Exam Vital Signs: Temp Pulse Resp BP Pulse Ox 98.0 F 67 16 97/68 L 99 07/10/17 16:08 07/10/17 16:08 07/10/17 16:08 07/10/17 16:08 07/10/17 16:08 Results Laboratory Results: 07/10/17 06:05 07/10/17 06:05 07/10/17 06:05 NT-Pro-B Natriuret Pep 2990 H Impressions: Chest X-Ray 07/09/17 03:13 IMPRESSION: 1. Retrocardiac airspace opacity concerning for pneumonia. Continued radiographic follow-up to resolution recommended Status: Imported from PACS Qualifiers - * PATIENT BEING DISCHARGED WITH ANY OF THE FOLLOWING DIAGNOSIS: No Plan Discharge Plan: DISCHARGE HOME WITH PRESCRIPTIONS FOR DOXYCYCLIN AND CEFTIN TO COMPLETE HIS ANTIBIOTIC THERAPY FOR COMMUNITY ACQUIRED PNA Time Spent: Less than 30 Minutes
[2017-07-13] MEDS ORDERED: ERGOCALCIFEROL (VITAMIN D2) 50000 UNIT (1.25 MG) CAPSULE PO SCH (10:00)
== END 2017-07-10 16:23 | disposition home or self-care (01) | DRG 195 ==
LOC: ER 02:50 → EH 05:46 → 3S 07:55
PROVIDERS: ADMIT Internal Medicine; ATTEND Internal Medicine
DX: J18.9 Pneumonia, unspecified organism (principal); I71.4 Abdominal aortic aneurysm, without rupture; I25.10 Atherosclerotic heart disease of native coronary artery without angina pectoris; E78.00 Pure hypercholesterolemia, unspecified; I11.0 Hypertensive heart disease with heart failure; I49.3 Ventricular premature depolarization; I48.2 Chronic atrial fibrillation; E03.9 Hypothyroidism, unspecified; I50.9 Heart failure, unspecified; Z95.1 Presence of aortocoronary bypass graft; Z79.899 Other long term (current) drug therapy; Z90.49 Acquired absence of other specified parts of digestive tract; Z82.49 Family history of ischemic heart disease and other diseases of the circulatory system; Z79.01 Long term (current) use of anticoagulants; Z79.82 Long term (current) use of aspirin
CPT/HCPCS: 36415; 71045; 80048; 80053; 81001; 83735; 83880; 84100; 84484; 85025; 85027; 85610; 87040; 93005; 93010; 99284; J1650; J1956; J3490; J7030; J7040

== ENCOUNTER → 2017-08-11 | Outpatient (CLI) | payer MEDICARE, OTHER ==
--- NOTE | 2017-08-11 09:18 | RADIOLOGY REPORT (SQ) ---
EXAM DESCRIPTION: CHEST PA/LATERAL COMPLETED DATE/TIME: 08/11/2017 8:55 am REASON FOR STUDY: LOBAR PNEUMONIA, UNSPECIFIED ORGANISM COMPARISON: Chest films 07/09/2017, 02/28/2016, 02/11/2016 CT abdomen pelvis 05/19/2015 EXAM PARAMETERS: NUMBER OF VIEWS: two views TECHNIQUE: Digital Frontal and Lateral radiographic views of the chest acquired. RADIATION DOSE: NA LIMITATIONS: none FINDINGS: LUNGS AND PLEURA: Chronic pleural thickening and adjacent lung parenchymal scarring in the left lateral and posterior costophrenic sulcus. This is similar compared to CT exam 05/19/2015. No acute infiltrates. No pleural effusion. No pneumothorax. Calcified right upper lobe granuloma. MEDIASTINUM AND HILAR STRUCTURES: No masses or contour abnormalities. HEART AND VASCULAR STRUCTURES: No cardiomegaly. Old sternotomy, mitral valve replacement and CABG. BONES: Osteopenic. HARDWARE: Abdominal Aortic stent graft at the bottom edge of the field of view on lateral film OTHER: No other significant finding. IMPRESSION: No acute findings TECHNICAL DOCUMENTATION: JOB ID: [id number] [email or web address]- All Rights Reserved Reading location - IP/workstation name: [email or web address]
== END ==
LOC: OD 08:41
PROVIDERS: ATTEND Nurse Practitioner
DX: J18.1 Lobar pneumonia, unspecified organism (principal)
CPT/HCPCS: 71046